=== PATIENT | female | born 1995 | race Caucasian/White ===

== ENCOUNTER 2024-12-19 18:39 | Emergency (ER) | payer SELFPAY ==
[~2024-12-19] VITALS: Ht 154.9 cm; Wt 90.7 kg
[2024-12-19] MEDS ORDERED: AUVELITY ER 451 EACH PO (19:33)
[2024-12-19] MEDS ORDERED: MEDROL DOSEPAK4 MG PO (20:43)
== END 2024-12-19 20:47 | disposition home or self-care (01) ==
LOC: ED 18:39
DX: B34.9 Viral infection, unspecified (principal); Z20.822 Contact with and (suspected) exposure to COVID-19; Z79.899 Other long term (current) drug therapy